=== PATIENT | female | born 1985 ===

== ENCOUNTER 2020-08-21 08:05 | Day surgery (SDC) | payer OTHER | END 2020-08-21 10:50 | disposition home or self-care (01) | LOC: AMB-ENDOS 08:05 | PROVIDERS: ATTEND Surgery | DX: D13.1 Benign neoplasm of stomach (principal); K44.9 Diaphragmatic hernia without obstruction or gangrene; Z20.822 Contact with and (suspected) exposure to COVID-19 ==